=== PATIENT | female | born 1960 | race Caucasian/White ===

== ENCOUNTER 2017-03-05 08:30 | Inpatient (IN) | payer BC ==
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
[2017-03-05] VITALS (21 sets, daily range): BP systolic 90–139; BP diastolic 51–79; PULSE 60–88; RESP 14–22; Ht 170.2 cm; Wt 65.0 kg
[~2017-03-05] VITALS: Ht 170.2 cm; Wt 65.0 kg
--- NOTE | 2017-03-05 06:48 | HPN ---
Date/Time of Note Date/Time of Note DATE: 03/05/17 TIME: 06:48 Interval H&P Admission Note Pt. seen H&P reviewed: No system changes AMADEO CASTANO MD Mar 05, 2017 06:48
[~2017-03-05 08:30] MED LIST: BUPIVACAINE 0.5% (SDV) 30 ML, morphine SULFATE (PF) 8 MG, EPINEPHrine 0.3 MG, KETOROLAC... IRR SCH; CEFAZOLIN 2 GM/50 ML (PMX) 50 ML IVPB ONE; DEXAMETHASONE 1 MG TAB PO ONE; GABAPENTIN 300 MG CAP PO ONE; SOD CHLORIDE 0.9% 100 ML, TRANEXAMIC ACID 3,000 MG IRR ONE; TRANEXAMIC ACID 1,000 MG in SOD CHLORIDE 0.9% 100 ML IVPB ONE; traMADol 50 MG TAB PO ONE
[2017-03-05] MEDS ORDERED: DEXAMETHASONE 1 MG TAB ONE (10:35)
[2017-03-05] MEDS ORDERED: traMADol 50 MG TAB ONE (10:35)
[2017-03-05] MEDS ORDERED: GABAPENTIN 300 MG CAP ONE (10:36)
[2017-03-05] MEDS ORDERED: BUPIVACAINE 0.5% (SDV) 30 ML, morphine SULFATE (PF) 8 MG, EPINEPHrine 0.3 MG, KETOROLAC... IRR SCH ×7 (12:00)
[2017-03-05] MEDS ORDERED: VANCOMYCIN 1 GM (PMX) 250 ML IVPB SCH (12:00)
[2017-03-05] MEDS ORDERED: traMADol 50 MG TAB PO SCH (12:00)
[2017-03-05] MEDS ORDERED: TRANEXAMIC ACID 1,000 MG in SOD CHLORIDE 0.9% 100 ML IVPB SCH (12:00)
[2017-03-05] MEDS ORDERED: DEXAMETHASONE 1 MG TAB PO SCH (12:00)
[2017-03-05] MEDS ORDERED: GABAPENTIN 300 MG CAP PO SCH ×2 (12:00→21:00)
[2017-03-05] MEDS ORDERED: CEFAZOLIN 2 GM/50 ML (PMX) 50 ML IVPB SCH (12:00)
[2017-03-05] MEDS ORDERED: SOD CHLORIDE 0.9% 100 ML, TRANEXAMIC ACID 3,000 MG IRR SCH ×2 (12:00)
[2017-03-05] MEDS ORDERED: THROMBIN 5000 UNIT VIAL ONE (12:05)
[2017-03-05] MEDS ORDERED: CA CHLORIDE 10% 10 ML SYRINGE ONE (12:05)
[2017-03-05] MEDS ORDERED: POLYMYXIN/BACITRACIN 1L IRRIG ONE (12:05)
[2017-03-05] MEDS ORDERED: morphine SULFATE/PF (10 MG/10 ML) INJ ONE (12:08)
[2017-03-05] MEDS ORDERED: FENTAnyl 50 MCG/ML VIAL ONE (12:08)
[2017-03-05] MEDS ORDERED: MIDAZOLAM 1 MG/ML 2 ML INJ ONE (12:09)
[2017-03-05] MEDS ORDERED: METOCLOPRAMIDE 10 MG INJ IV PRN (12:30)
[2017-03-05] MEDS ORDERED: morphine (1 MG/ML) 10ML SYRINGE IV PRN (12:30)
[2017-03-05] MEDS ORDERED: FENTAnyl 50 MCG/ML VIAL IV PRN (12:30)
[2017-03-05] MEDS ORDERED: DIPHENHYDRAMINE 50 MG INJ IV PRN ×2 (12:30→14:30)
[2017-03-05] MEDS ORDERED: ONDANSETRON 4 MG INJ IV PRN ×2 (12:30→14:30)
[2017-03-05] MEDS ORDERED: MEPERIDINE 25 MG INJ IV PRN (12:30)
[2017-03-05] MEDS ORDERED: NALOXONE (0.4 MG/ML) INJ IV PRN (13:00)
[2017-03-05] MEDS ORDERED: GLYCOPYRROLATE 0.4 MG INJ ONE (14:04)
[2017-03-05] MEDS ORDERED: ROCURONIUM 50 MG INJ ONE (14:04)
[2017-03-05] MEDS ORDERED: ONDANSETRON 4 MG INJ ONE (14:04)
[2017-03-05] MEDS ORDERED: NEOSTIGMINE 3 MG/3 ML SYRINGE ONE (14:04)
[2017-03-05] MEDS ORDERED: LIDOCAINE 2% (SDV) 5 ML INJ ONE (14:04)
[2017-03-05] MEDS ORDERED: PROPOFOL 20 ML ONE (14:04)
--- NOTE | 2017-03-05 14:15 | OPR ---
Date/Time of Note Date/Time of Note DATE: 03/05/17 TIME: 14:13 Operative Report Procedure Date: Mar 05, 2017 Preoperative Diagnosis Primary hip arthritis, right hip Postoperative Diagnosis Right hip primary osteoarthritis Operation Performed Right total hip arthroplasty Surgeon: AMADEO CASTANO MD Radiology Transporter: CAM ANGELA MD Anesthesia Type: general Estimated Blood Loss: 150 - 200 ml's Transfusion Required: no Specimen: none Complications: no Pt Condition Post Procedure: stable Disposition: PACU Procedure Description UPPER SHAPER SURGEON: [Danilo Angela MD] was asked to be present at my request as a result of the complexity associated with this procedure including positioning of the extremity, positioning of the instrumentation and protection of the neurovascular structures. In my opinion, the assistance offered by a surgical instrument technician is insufficient and Dr. Angela should be compensated for his time. PROCEDURE IN DETAIL: Following the administration of general endotracheal anesthesia supplemented with a spinal anesthetic, the patient was placed in the supine position. The bilateral lower extremities were then prepped and draped in the usual sterile fashion. A founder / ceo radiograph was obtained for preliminary limb length and femoral size as well as acetabular size. A lateral incision was then made exposing the tensor fascia the fascia was incised the tensor was retracted laterally and the vessels were cauterized. The anterior capsule was then identified and prepared. A capsulectomy was then performed and the femoral head was then evaluated. Severe arthritic changes were noted. A femoral head cut was then made in the appropriate degree of version and inclination. The acetabulum was then exposed and a capsulectomy and labrectomy were completed. The central portion was then entered and serially reamed up to the 51 mm size. A Depuy [place] cup which is 52 mm in size with a standard liner was then fit into position with solid fixation. A 30 mm screw was used for additional fixation. Attention was then directed to the femur, the femur was exposed and prepared. The canal was entered and serially reamed up to the 12 mm size. A 12 mm Depuy [place] stem was then inserted with solid fixation. A +5 femoral head, which was ceramic was then inserted. The leg was taken through full range of motion with no evident instability. In addition, radiographs revealed excellent position with reproduction of the limb lengths within a millimeter. The wound was irrigated thoroughly. The wound was then closed in layers and a Prenio for the final cover. This was watertight. Estimated blood loss was procedure was 200 cc. Postoperative radiographs will be obtained in the recovery room. TRANSFUSION REQUIRED: No SPECIMENS: None GRAFTS/IMPLANTS: As above TUBES/DRAINS: None COMPLICATIONS: None PT. CONDITION POST PROCEDURE: [Stable] AMADEO CASTANO MD Mar 05, 2017 14:15
[2017-03-05] MEDS ORDERED: ACETAMINOPHEN 500 MG TAB PO PRN (14:30)
[2017-03-05] MEDS ORDERED: morphine 2 MG INJ IV PRN (14:30)
[2017-03-05] MEDS ORDERED: VANCOMYCIN 500MG/NS (PMX) 100 ML IVPB SCH (14:30)
[2017-03-05] MEDS ORDERED: MAGNESIUM HYDROXIDE 30ML CUP PO PRN (14:30)
[2017-03-05] MEDS ORDERED: KETOROLAC 15 MG INJ IV PRN (14:30)
[2017-03-05] MEDS ORDERED: morphine 4 MG/ML VIAL IV PRN (14:30)
[2017-03-05] MEDS ORDERED: OXYCODONE/ACETAMINOPHEN (5/325) TAB PO PRN ×2 (14:30)
[2017-03-05] MEDS ORDERED: BETHANECHOL 25 MG TAB PO PRN (14:30)
[2017-03-05] MEDS ORDERED: TRANEXAMIC ACID 1,000 MG in SOD CHLORIDE 0.9% 100 ML IV ONE (14:30)
[2017-03-05] MEDS ORDERED: ZOLPIDEM 5 MG TAB PO PRN (14:30)
--- NOTE | 2017-03-05 15:30 | RADRPT ---
PROCEDURE: Pelvis x-ray CLINICAL INDICATION: Pain TECHNIQUE: Single AP view of the pelvis performed. COMPARISON: None FINDINGS: There is decreased osseous mineralization. No fracture or osseous lesion identified. A total right hip prosthesis is noted in near anatomic alignment without evidence of hardware loosen ing. Likely postoperative changes including subcutaneous emphysema are noted. Partially visualized lumbar spine fusion hardware is noted as well as a disk space at L4-5. The left hip joint is unremarkable. A Cherry catheter is noted. RPTAT: AA IMPRESSION: Total right hip prosthesis in near anatomic alignment with likely postoperative changes. Decreased osseous mineralization. Physician Kieran Date Time Electronically viewed and signed by Physician Kieran on 03/05/2017 15:30 RA/
--- NOTE | 2017-03-05 15:32 | RADRPT ---
PROCEDURE: X-ray fluoroscopy guidance CLINICAL INDICATION: RT HIP REPLACEMENT TECHNIQUE: Fluoroscopic guidance was utilized for intraoperative procedure. COMPARISON: None. FINDINGS: Fluoroscopic guidance was utilized for intraoperative procedure. 0.5 minutes of fluoroscopy time wa s utilized for the procedure. 5 x-ray images were obtained during the procedure. There is a total right hip prosthesis in near anatomic alignment. IMPRESSION: X-ray fluoroscopic guidance utilized for intraoperative procedure. Status post placement of a total right hip prosthesis in near anatomic alignment. Please see procedure note details. RPTAT: EE Physician Kieran Date Time Electronically viewed and signed by Physician Kieran on 03/05/2017 15:31 /
[2017-03-05] MEDS: LACTATED RINGER'S 1,000 ML IV SCH ×2 (15:54→23:47)
[2017-03-05 16:07] LABS: BASOPHIL # 0.1 10^3/ul (0.0-0.1); BASOPHILS % 0.6 % (0.0-2.0); EOSINOPHILS % 0.2 % (0.0-7.0); HEMATOCRIT 35.9 % (37.0-47.0); HEMOGLOBIN 11.9 g/dl (12.0-16.0); LYMPHOCYTES # 3.5 10^3/ul (0.8-2.9); LYMPHOCYTES % 40.1 % (15.0-51.0); MEAN CORPUSCULAR HEMOGLOBIN 32.5 pg (29.0-33.0); MEAN CORPUSCULAR HGB CONC 33.1 g/dl (32.0-37.0); MEAN CORPUSCULAR VOLUME 98.1 fl (82.0-101.0); MEAN PLATELET VOLUME 10.6 fl (7.4-10.4); MONOCYTE # 0.3 10^3/ul (0.3-0.9); NEUTROPHILS % 55.4 % (39.0-77.0); PLATELET COUNT 262 10^3/UL (140-415); RED BLOOD COUNT 3.66 10^6/ul (4.20-5.40); RED CELL DISTRIBUTION WIDTH 13.2 % (11.5-14.5); WHITE BLOOD COUNT 8.7 10^3/ul (4.8-10.8)
[2017-03-05] MEDS: DEXAMETHASONE 2 MG TAB PO SCH ×2 (18:09→23:46)
[2017-03-05] MEDS: SENNA/DOCUSATE NA (8.6MG/50MG) TAB PO SCH (21:25)
[2017-03-05] MEDS: VANCOMYCIN 500MG/NS (PMX) 100 ML IVPB SCH (21:26)
[2017-03-06 00:11] VITALS: BP 107/59; RESP 18
[2017-03-06] MEDS: LACTATED RINGER'S 1,000 ML IV SCH (04:41)
[2017-03-06 05:13] LABS: BASOPHILS % 0.3 % (0.0-2.0); EOSINOPHILS % 0.1 % (0.0-7.0); HEMATOCRIT 28.9 % (37.0-47.0); HEMOGLOBIN 9.6 g/dl (12.0-16.0); LYMPHOCYTES # 1.8 10^3/ul (0.8-2.9); LYMPHOCYTES % 15.9 % (15.0-51.0); MEAN CORPUSCULAR HEMOGLOBIN 32.4 pg (29.0-33.0); MEAN CORPUSCULAR HGB CONC 33.2 g/dl (32.0-37.0); MEAN CORPUSCULAR VOLUME 97.6 fl (82.0-101.0); MEAN PLATELET VOLUME 10.5 fl (7.4-10.4); MONOCYTE # 0.8 10^3/ul (0.3-0.9); MONOCYTES % 6.8 % (0.0-11.0); NEUTROPHILS % 76.4 % (39.0-77.0); PLATELET COUNT 215 10^3/UL (140-415); RED BLOOD COUNT 2.96 10^6/ul (4.20-5.40); RED CELL DISTRIBUTION WIDTH 13.3 % (11.5-14.5); WHITE BLOOD COUNT 11.5 10^3/ul (4.8-10.8)
[2017-03-06] MEDS: DEXAMETHASONE 2 MG TAB PO SCH ×2 (06:16→12:40)
--- NOTE | 2017-03-06 06:47 | PN ---
Date/Time of Note Date/Time of Note DATE: 03/06/17 TIME: 06:46 24 hour Interval Summary Patient is awake and alert. She has had very little if any pain. Physical Exam Physical examination: Her wound is clean and dry. She is neurologically intact. She has no signs of DVT. Vital Signs Date Time Temp Pulse Resp B/P Pulse Ox O2 Delivery O2 Flow Rate FiO2 03/05/17 23:54 98.5 72 18 90/51 94 03/05/17 18:05 Room Air Intake and Output 03/05/17 03/05/17 03/06/17 15:00 23:00 07:00 Intake Total 1400 ml 600 ml 1650 ml Output Total 580 ml 300 ml 800 ml Balance 820 ml 300 ml 850 ml VTE Prophylaxis VTE Prophylaxis Intervention: anti-embolic stocking Lines/Catheters IV Catheter Type: Saline Lock Cherry in Place: No Results Result Diagram: 03/05/17 1430 Results 24hrs Laboratory Tests Test 03/05/17 14:30 03/06/17 04:23 03/06/17 06:40 White Blood Count 8.7 Pending Red Blood Count 3.66 L Pending Hemoglobin 11.9 L Pending Hematocrit 35.9 L Pending Mean Corpuscular Volume 98.1 Pending Mean Corpuscular Hemoglobin 32.5 Pending Mean Corpuscular Hemoglobin Concent 33.1 Pending Red Cell Distribution Width 13.2 Pending Platelet Count 262 Pending Mean Platelet Volume 10.6 H Pending Neutrophils % 55.4 Lymphocytes % 40.1 Monocytes % 3.0 Eosinophils % 0.2 Basophils % 0.6 Nucleated Red Blood Cells % 0.0 Neutrophils # (Manual) 5 Lymphocytes # 3.5 H Monocytes # 0.3 Eosinophils # 0.0 Basophils # 0.1 Nucleated Red Blood Cells # 0.0 Lab Scanned Report LAB Assessment/Plan Assessment/Plan Assessment: Status post total hip replacement Plan: She will begin physical therapy this morning. She is to be discharged once she is cleared by physical therapy. Follow-up in the office in 2 weeks. Medications Medications Home Meds No Active Prescriptions or Reported Meds AMADEO CASTANO MD Mar 06, 2017 06:47
--- NOTE | 2017-03-06 06:48 | PDOCDIS ---
Discharge Instructions DIAGNOSIS Discharge Diagnosis Primary hip arthritis right CONDITION Patient Condition: Good HOME CARE INSTRUCTIONS: Diet Instructions: Regular ACTIVITY: Activity Restrictions: Slowly Increase Activity Keep Limb Elevated Bathing Restrictions: Shower FOLLOW UP/APPOINTMENTS Follow-up Plan Two-week SCHOOL/WORK RELEASE May return to School/Work with: With Restrictions School/Work Release Comment: No hip extension for 6 weeks AMADEO CASTANO MD Mar 06, 2017 06:47
[2017-03-06 07:47] VITALS: BP 107/65; RESP 18
[2017-03-06] MEDS: SENNA/DOCUSATE NA (8.6MG/50MG) TAB PO SCH (08:59)
[2017-03-06] MEDS ORDERED: ASPIRIN 81 MG TAB PO SCH (09:00)
[2017-03-06 10:14] VITALS: BP 94/62; RESP 18
[2017-03-06] MEDS: VANCOMYCIN 500MG/NS (PMX) 100 ML IVPB SCH (10:31)
[2017-03-06 14:54] VITALS: BP 97/58; PULSE 73; RESP 16
== END 2017-03-06 15:10 | disposition home or self-care (01) | DRG 470 ==
LOC: REC 08:30 → EDSTATUS 14:00 → MS1 17:26
PROVIDERS: ADMIT Orthopaedic Surgery; ATTEND Orthopaedic Surgery
PROC: 0SR904Z Replacement of Right Hip Joint with Ceramic on Polyethylene Synthetic Substitute, Open Approach (ICD-10-PCS; principal; 2017-03-05 12:00)
DX: M16.11 Unilateral primary osteoarthritis, right hip (principal)
CPT/HCPCS: 72170; 73530; 84703; 85025; 86999; 97110; 97116; 97163; 97530; C1713; C1776; J2250; J2274; J2405; J2710; J3010; J3370; J7120